=== PATIENT | female | born 1970 | race Caucasian/White ===

== ENCOUNTER 2019-07-09 14:13 | Emergency (ER) | payer OTHER ==
[~2019-07-09] VITALS: Ht 167.6 cm; Wt 70.3 kg
== END 2019-07-09 18:48 | disposition home or self-care (01) ==
LOC: ER 14:13
DX: N83.291 Other ovarian cyst, right side (principal); R10.31 Right lower quadrant pain

== ENCOUNTER 2019-07-11 09:18 | Emergency (ER) | payer OTHER ==
[~2019-07-11] VITALS: Ht 167.6 cm; Wt 70.3 kg
[2019-07-11] MEDS ORDERED: ZOLOFT100 MG PO (09:28)
[2019-07-11] MEDS ORDERED: NORVASC5 MG PO (09:28)
[2019-07-11] MEDS ORDERED: RAYOS1 MG (09:28)
[2019-07-11] MEDS ORDERED: FIRAZYR30 MG/3 ML SQ (09:29)
[2019-07-11] MEDS ORDERED: UCERIS9 MG (09:30)
[2019-07-11] MEDS ORDERED: YUPELRI175 MCG/3 IH (09:30)
== END 2019-07-12 10:52 | disposition home or self-care (01) ==
LOC: ER 09:18
DX: R10.11 Right upper quadrant pain (principal); R53.81 Other malaise